=== PATIENT | female | born 1965 | race Caucasian/White ===

== ENCOUNTER → 2016-03-15 | Outpatient (CLI) | payer BC ==
--- NOTE | 2016-03-15 17:08 | MAMMOGRAPHY REPORT ---
BILATERAL DIGITAL SCREENING MAMMOGRAM TOMOSYNTHESIS WITH CAD: 03/15/2016 CLINICAL HISTORY: Routine screening. Patient has no complaints. TECHNIQUE: Breast tomosynthesis in addition to standard 2D mammography was performed. Current study was also evaluated with a Computer Aided Detection (CAD) system. COMPARISON: Comparison is made to exams dated: 03/12/2015 mammogram - [facility] [address], 09/20/2011 mammogram, 06/30/2010 mammogram, 06/23/2009 mammogram, and 05/06/2008 mammogram - [facility]. BREAST COMPOSITION: There are scattered areas of fibroglandular density in both breasts. FINDINGS: There is a new small grouping of microcalcifications in the 3:00 middle one third of the left breast, for which additional spot magnification views are recommended. No other suspicious mass, architectural distortion or cluster of microcalcifications is seen bilater ally. IMPRESSION: ACR BI-RADS CATEGORY 0: INCOMPLETE EVALUATION: NEED ADDITIONAL IMAGING EVALUATION The new small grouping of microcalcifications in the left breast need additional evaluation. The patient will be called to schedule an appointment. Approximately 10% of breast cancers are not detected with mammography. A negative mammographic repor t should not delay biopsy if a clinically suggestive mass is present. Marlys Saleem M.D. ay/:03/15/2016 16:08:49 Engagement Manager: Natalie PICKARD(Ady)(M), [facility] [address] letter sent: Addl Imaging 0 BI-RADS Code: ACR BI-RADS Category 0: Incomplete Evaluation: Need Additional Imaging Evaluation
== END | disposition home or self-care (01) ==
LOC: C.MAMM 07:10
PROVIDERS: ATTEND Obstetrics & Gynecology
DX: Z12.31 Encounter for screening mammogram for malignant neoplasm of breast (principal); R92.0 Mammographic microcalcification found on diagnostic imaging of breast

== ENCOUNTER → 2016-03-27 | Outpatient (CLI) | payer BC ==
--- NOTE | 2016-03-27 13:33 | MAMMOGRAPHY REPORT ---
UNILATERAL LEFT DIGITAL DIAGNOSTIC MAMMOGRAM: 03/27/2016 CLINICAL HISTORY: 50-year-old woman with no family history of breast cancer called back from screeni ng mammography for a new clustered microcalcifications in the left breast. TECHNIQUE: Spot magnification left CC and ML views were obtained. COMPARISON: Comparison is made to exams dated: 03/15/2016 mammogram, 03/12/2015 mammogram - [facility], 06/23/2009 mammogram, 05/06/2008 mammogram, 06/30/2010 mammogram, and 09/20/2011 mamm ogram - [facility]. BREAST COMPOSITION: There are scattered areas of fibroglandular density in the left breast. FINDINGS: Spot magnification views of the left breast demonstrate a new 3.5 mm cluster of round and punctate microcalcifications in the upper outer middle one third of the left breast. They are new w hen comparing to prior available mammograms and therefore indeterminate. No definite associated mas s or architectural distortion. Definitive characterization with a left breast stereotactic guided b iopsy is recommended. IMPRESSION: ACR BI-RADS CATEGORY 4B: INTERMEDIATE SUSPICION FOR MALIGNANCY The new 3.5 mm cluster of round and punctate microcalcifications in the left upper outer quadrant ar e indeterminate, warranting further evaluation with a left breast stereotactic guided biopsy. These results and recommendations were discussed with the patient at the time of the exam. She tent atively scheduled the biopsy prior to leaving our department. Approximately 10% of breast cancers are not detected with mammography. A negative mammographic repor t should not delay biopsy if a clinically suggestive mass is present. Marlys Saleem M.D. ay/:03/27/2016 09:49:49 Tape Folding Machine Operator: Katrin PICKARD(Ady)(Joyce), [facility] letter sent: Abnormal 4/5 BI-RADS Code: ACR BI-RADS Category 4B: Intermediate Suspicion For Malignancy
== END | disposition home or self-care (01) ==
LOC: C.MAMM 09:21
PROVIDERS: ATTEND Obstetrics & Gynecology
DX: R92.0 Mammographic microcalcification found on diagnostic imaging of breast (principal)

== ENCOUNTER → 2016-04-06 | Outpatient (CLI) | payer BC ==
--- NOTE | 2016-04-06 13:18 | Discharge Instructions ---
Discharge Instructions Procedure Procedure Date: Apr 06, 2016. Reason for visit: Left Calc. Discharge Discharge Date: Apr 06, 2016. Discharge Diagnosis: status post breast biopsy Instructions Activity Recommendations: Additional Limitations (see below) Return to School/Work: no limitations Recommended Home Diet: No Limitations Provider Instructions: ACTIVITY RECOMMENDATIONS: * No lifting, pushing, pulling or exercising the affected side for three days. RETURN TO SCHOOL/WORK: * You may return to work/school after the procedure, but do not perform any strenuous activities for 24 to 48 hours. MEDICATIONS: * Tylenol (two 325 mg) every four to six hours if needed for mild pain (if not allergic to Tylenol). DIET: * Resume previous diet. SPECIAL CARE INSTRUCTIONS: * Keep biopsy site dry for 24 hours. May shower after 24 hours, but do not soak (bathe) incision. * May remove Tegaderm (plastic patch) tomorrow AFTER showering. * Leave the steri-strips on for one week. Allow the steri-strips to fall off by themselves. If not off after one week, you may remove them. You may place a Bandaid crosswise over the strips, if desired. * Apply ice 10 minutes on and 10 minutes off as needed. * Wear a bra at bedtime to sleep more comfortably for 2-3 days. * Your referring physician should have the results after approximately 5 to 7 business days. * Call for unusual bleeding, fever, drainage, etc or if you have any questions call during normal business hours or after hours call Dr Singh, . FOLLOW UP VISIT: Follow-up with Referring Physician as scheduled. Nedra Schulzy Recommendations: Call your doctor if: * Temperature above 101 degrees * Pain not relieved by pain medicine ordered * There is increased drainage or redness from any incision * You have any unanswered questions or concerns. Your Doctors Instructions noted above were prepared by provider Nuvia Singh. Patient Signature Section: Patient Instructions Signature Page Alvina Castillo Patient (or Guardian) Signature/Date: I have read and understand the instructions given to me by my caregivers. Caregiver/RN/Doctor Signature/Date: The above-named patient and/or guardian has received patient instructions on this date. + Original Patient Signature Page (only) stays with chart. Please make copy for patient.
--- NOTE | 2016-04-06 16:34 | MAMMOGRAPHY REPORT ---
STEREOTACTIC GUIDED BIOPSY LEFT BREAST: 04/06/2016 CLINICAL HISTORY: Indeterminate calcifications in the left upper outer quadrant. PATIENT CONSENT: The procedure, risks, benefits, and alternatives of stereotactic biopsy with clip p sajan were discussed with the patient, and verbal and written consent was obtained. A timeout wa s performed immediately prior to the procedure. PROCEDURE DESCRIPTION: With stereotactic guidance, aseptic technique, and lidocaine as a local anest hetic (1% lidocaine to anesthetize the skin and 1% lidocaine with epinephrine to anesthetize the humberto per tissues), the area of concern was sampled multiple times with a 9-gauge vacuum-assisted biopsy n eedle (Suros Eviva). The path of approach was lateral. The specimen radiograph demonstrates calcif ications to be present in the samples. A metallic marker clip was placed at the biopsy site. This was confirmed on postprocedure mammograms. Direct pressure was applied at the biopsy site and hemos tasis was readily achieved. The patient tolerated the procedure without complication. She was give n wound care instructions. COMPARISON: Comparison is made to exams dated: 03/27/2016 mammogram, 03/15/2016 mammogram, 03/12/2015 m ammogram, 03/06/2014 mammogram - [facility], 09/20/2011 mammogram, and 06/30/2010 mamm ogram - [facility]. IMPRESSION: STEREOTACTIC GUIDED BIOPSY Stereotactic biopsy of indeterminate calcifications in the left upper outer quadrant, with clip melly martinez. The patient will receive pathology results from her ordering physician. Nuvia Singh M.D. /:04/06/2016 13:32:46 Strategy Analyst: Natalie THOMPSON)(M), [facility]
--- NOTE | 2016-04-06 16:34 | MAMMOGRAPHY REPORT ---
UNILATERAL LEFT DIGITAL DIAGNOSTIC MAMMOGRAM: 04/06/2016 CLINICAL HISTORY: Status post left breast stereotactic biopsy. TECHNIQUE: Postprocedural left CC and LM views were obtained. COMPARISON: Comparison is made to exams dated: 03/15/2016 mammogram, 03/12/2015 mammogram, 03/06/2014 mammogram - [facility], 09/20/2011 mammogram, and 06/30/2010 mammogram - [facility]. BREAST COMPOSITION: There are scattered areas of fibroglandular density in the left breast. FINDINGS: A new biopsy marker clip is seen at the site of the biopsied calcifications in the left up per outer quadrant/9:00 breast. No significant postbiopsy hematoma is seen. IMPRESSION: POST PROCEDURE IMAGING FOR MARKER PLACEMENT New biopsy marker clip status post stereotactic biopsy of left breast calcifications. Pathology res ults are pending. Approximately 10% of breast cancers are not detected with mammography. A negative mammographic repor t should not delay biopsy if a clinically suggestive mass is present. Nuvia Singh M.D. ah/:04/06/2016 13:40:30 Corporate Accountant: Natalie Mcknight RT(R)(M), [facility] BI-RADS Code: Post Procedure Imaging For Marker Placement
== END | disposition home or self-care (01) ==
LOC: C.MAMM 12:25
PROVIDERS: ATTEND Obstetrics & Gynecology
DX: R92.1 Mammographic calcification found on diagnostic imaging of breast (principal)